=== PATIENT | male | born 1935 | race Caucasian/White ===

== ENCOUNTER 2022-03-22 18:52 | Emergency (ER) | payer MEDICARE, OTHER ==
[~2022-03-22] VITALS: Ht 175.3 cm; Wt 83.0 kg
[~2022-03-22 18:52] MED LIST: ARICEPT10 MG PO; ASPIRIN81 MG PO; COUMADIN5 MG PO; FISH OIL 1,2001 EAC1 PO; LASIX40 MG PO; METOPROLOL TART25 MG PO; MINOCYCLINE HCL50 MG PO; NORCO 5-325 TA1 EACH PO; PROSTATE SR SO1 EACH PO; RESTORIL15 MG PO; WARFARIN SODIU7.5 MG PO; ZOCOR20 MG PO
[2022-03-22] MEDS ORDERED: ONDANSETRON HCL INJ 2MG/ML 2ML 2 MG/ML VIAL IV STA (19:31)
[2022-03-22] MEDS ORDERED: FENTANYL CITRATE/PF 100MCG/2 ML INJ ONE (19:42)
[2022-03-22] MEDS ORDERED: ONDANSETRON HCL INJ 2MG/ML 2ML 2 MG/ML VIAL ONE (19:43)
[2022-03-22] MEDS ORDERED: FENTANYL CITRATE/PF 100MCG/2 ML INJ IV ONE (19:45)
[2022-03-22] MEDS ORDERED: METHYLPREDNISOLONE SOD SUCC 125 MG/2ML VIAL IV ONE (19:45)
[2022-03-22] MEDS ORDERED: METHYLPREDNISOLONE SOD SUCC 125 MG/2ML VIAL ONE (19:46)
[2022-03-22] MEDS ORDERED: HYDROCODON-ACE1 EA11 PO (19:50)
== END 2022-03-22 20:00 | disposition home or self-care (01) ==
LOC: ER 19:13
DX: M79.641 Pain in right hand (principal); M10.9 Gout, unspecified; F03.90 Unspecified dementia, unspecified severity, without behavioral disturbance, psychotic disturbance, mood disturbance, and anxiety; M54.9 Dorsalgia, unspecified; G89.29 Other chronic pain
CPT/HCPCS: 99283; J2405; J2930; J3010

== ENCOUNTER 2022-05-09 20:25 | Observation (INO) | payer MEDICARE, OTHER ==
[~2022-05-09] VITALS: Ht 175.3 cm; Wt 79.4 kg
[~2022-05-09 20:25] MED LIST changes: +HYDROCODON-ACE1 EA11 PO
[2022-05-09 23:15] LABS: BASOPHILS % 0.3 % (0.0-1.0); EOSINOPHILS # (AUTO) 0.2 (0.0-0.4); EOSINOPHILS % 2.1 % (0.0-6.0); HEMATOCRIT 29.6 % (38.2-49.6); HEMOGLOBIN 9.2 g/dL (14.0-18.0); LYMPHOCYTES # (AUTO) 1.2 (1.0-3.2); LYMPHOCYTES % 13.8 % (18.0-39.1); MEAN CORPUSCULAR HEMOGLOBIN 29.4 pg (28-32); MEAN CORPUSCULAR HGB CONC 31.1 g/dL (31-35); MEAN CORPUSCULAR VOLUME 94.6 fL (81-99); MONOCYTES # (AUTO) 0.8 (0.2-0.8); MONOCYTES % 8.8 % (4.4-11.3); NEUTROPHILS # (AUTO) 6.4 (2.1-6.9); NEUTROPHILS % 74.3 % (38.7-80.0); PLATELET COUNT 211 x10e3/uL (140-360); RED BLOOD COUNT 3.13 x10e6/uL (4.3-5.7); RED CELL DISTRIBUTION WIDTH 14.4 % (11.7-14.4)
[2022-05-09 23:34] LABS: ALBUMIN 2.4 g/dL (3.5-5.0); ALBUMIN/GLOBULIN RATIO 0.6 (0.8-2.0); ANION GAP 12.6 mmol/L (8-16); CALCIUM 8.3 mg/dL (8.4-10.2); CREATININE, SERUM 1.15 mg/dL (0.72-1.25); POTASSIUM 3.6 mmol/L (3.5-5.1)
[2022-05-09 23:41] LABS: CREATINE KINASE MB 1.7 ng/mL (0-5.0)
[2022-05-10] MEDS ORDERED: ONDANSETRON HCL INJ 2MG/ML 2ML 2 MG/ML VIAL IV PRN
[2022-05-10] MEDS ORDERED: TRAMADOL HCL 50 MG TAB PO PRN (00:30)
[2022-05-10 01:35] VITALS: BP 118/74
[2022-05-10 02:57] VITALS: BP 118/74
[2022-05-10 04:00] VITALS: BP 127/96
[2022-05-10] MEDS ORDERED: JANTOVEN5 MG PO (06:10)
[2022-05-10] MEDS ORDERED: JANTOVEN7.5 MG PO (06:10)
[2022-05-10 08:00] VITALS: BP 121/81
[2022-05-10] MEDS ORDERED: WARFARIN SOD 5 MG TAB PO SCH (08:15)
[2022-05-10] MEDS: DONEPEZIL HCL 5 MG TAB PO SCH ×2 (08:26→16:41)
[2022-05-10] MEDS ORDERED: FUROSEMIDE 40 MG TAB PO SCH (09:00)
[2022-05-10] MEDS ORDERED: [UNRECOGNIZED DRUG - OTHER] PO SCH (09:00)
[2022-05-10] MEDS ORDERED: OMEGA PO SCH (09:00)
[2022-05-10] MEDS ORDERED: FATTY ACIDS PO SCH (09:00)
[2022-05-10] MEDS ORDERED: FISH OIL PO SCH (09:00)
[2022-05-10] MEDS ORDERED: LORAZEPAM 0.5 MG TAB PO ONE (09:00)
[2022-05-10] MEDS ORDERED: WARFARIN SODIUM 7.5 MG PO SCH (09:00)
[2022-05-10] MEDS ORDERED: METOPROLOL TARTRATE 25 MG TAB PO SCH (09:00)
[2022-05-10] MEDS ORDERED: ASPIRIN 81 MG CHEW TAB PO SCH (09:00)
[2022-05-10 11:19] VITALS: BP 121/71
[2022-05-10 16:23] VITALS: BP 118/67
[2022-05-10] MEDS ORDERED: SIMVASTATIN 20 MG TAB PO SCH (21:00)
== END 2022-05-10 16:46 | disposition hospice, inpatient (51) ==
LOC: ER 20:38 → ERHOLD 05-10 00:01 → MED/SURG3 05-10 00:54
DX: M25.541 Pain in joints of right hand (principal); F03.90 Unspecified dementia, unspecified severity, without behavioral disturbance, psychotic disturbance, mood disturbance, and anxiety; D64.9 Anemia, unspecified; R60.0 Localized edema; Z66 Do not resuscitate; Z20.822 Contact with and (suspected) exposure to COVID-19; E78.5 Hyperlipidemia, unspecified; M19.90 Unspecified osteoarthritis, unspecified site; M25.511 Pain in right shoulder; M10.9 Gout, unspecified
CPT/HCPCS: 36415; 80053; 82550; 82553; 83880; 84484; 85025; 93971; 99284; G0378